=== PATIENT | female | born 1990 | race Caucasian/White ===

== ENCOUNTER 2020-02-23 17:25 | Emergency (ER) | payer OTHER, SELFPAY ==
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
[2020-02-23 17:31] VITALS: BP 109/84; PULSE 101; RESP 16; TEMP 37.7; O2SAT 97
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
== END 2020-02-23 18:16 | disposition short-term general hospital (02) ==
PROVIDERS: Emergency Provider Nurse Practitioner
DX: S61.250A Open bite of right index finger without damage to nail, initial encounter (principal); Y04.1XXA Assault by human bite, initial encounter
CPT/HCPCS: 73140; 99213; G0463

== ENCOUNTER 2021-06-10 19:42 | Emergency (ER) | payer OTHER, SELFPAY ==
--- NOTE | ~2021-06-10 | XR_ITS ---
EXAMINATION: XR foot RT min 3V DATE: 06/10/2021 20:10 INDICATION: Pain at the right metatarsophalangeal joints after kicking a door one week prior. TECHNIQUE: Dorsoplantar, two oblique and lateral views of the right foot were obtained. COMPARISON: None. FINDINGS: Bone alignment is normal. Antegrade intramedullary doug is seen extending caudally along the visualize d right tibia to the distal metaphysis. No fractures identified. Joint spaces are normal. Soft tissue s are unremarkable. No right ankle joint effusion. IMPRESSION: 1. Incompletely visualized internal fixation at the distal right tibia. No osseous abnormality in the right foot. Reviewed, dictated and finalized at location A. IMPRESSION: 1. Incompletely visualized internal fixation at the distal right tibia. No osse ous abnormality in the right foot.
[2021-06-10 19:52] VITALS: BP 125/69; PULSE 103; RESP 20; TEMP 36.9; O2SAT 100
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
== END 2021-06-10 20:30 | disposition home or self-care (01) ==
PROVIDERS: Emergency Provider Nurse Practitioner
DX: H66.001 Acute suppurative otitis media without spontaneous rupture of ear drum, right ear (principal); S90.31XA Contusion of right foot, initial encounter; W22.8XXA Striking against or struck by other objects, initial encounter; F17.210 Nicotine dependence, cigarettes, uncomplicated; G25.81 Restless legs syndrome
CPT/HCPCS: 73630; 99213; G0463

== ENCOUNTER 2021-08-27 13:08 | Emergency (ER) | payer OTHER, SELFPAY ==
--- NOTE | 2021-08-27 13:11 | ED.URI ---
HPI - URI/Sore Throat General Chief Complaint: Upper Respiratory Infection Stated Complaint: Congestion/Cough/Nausea Time Seen by Provider: 08/27/21 13:11 Source: patient and RN notes reviewed History of Present Illness HPI Narrative: Patient is a 30-year-old female who presents the urgent care with complaints of abdominal bloating, congestion, cough, nausea and fever that started yesterday. Although the fever to started yesterday she has been symptomatic for 4 days. Patient states that she took a test and it came up nothing . Patient states that she has had a uterine ablation and also does not have a uterus . Patient states that she should not be able to get . States that she started retaking medication [id number] for her symptoms yesterday. Denies of any vomiting or abdominal pain. No other acute complaints. No acute distress noted. Patient aware of the plan of care. Some parts of this dictation were generated by voice recognition software and may contain typographical and/or grammatical inaccuracies. Related Data Home Medications Medication Instructions Recorded Confirmed gabapentin 400 mg PO QID 08/27/21 08/27/21 Allergies Allergy/AdvReac Type Severity Reaction Status Date / Time ketorolac Allergy Intermediate RASH Verified 08/27/21 13:35 naproxen Allergy Intermediate RASH Verified 08/27/21 13:35 codeine Allergy Unknown itching Verified 08/27/21 13:35 Review of Systems Review of Systems: CONSTITUTIONAL: Reports a fever. EYES: Denies visual changes, redness, or discharge. ENT: Reports of head congestion as she CARDIOVASCULAR: Denies chest pain, palpitations, or edema. RESPIRATORY: Reports a mild cough GASTROINTESTINAL: Reports of abdominal distention with intermittent nausea without vomiting or diarrhea GENITOURINARY: Reports a possible SKIN: Denies rash or itching. MUSCULOSKELETAL: Denies back pain, joint pain, or myalgia. NEUROLOGIC: Reports of headache All other systems reviewed are negative, except as documented in HPI. [facility] Past Medical History Medical History (Updated 08/27/21 @ 13:51 by ERIN Gonzalez) Anxiety and depression Bipolar 1 disorder RLS (restless legs syndrome) Skull fracture Tibia/fibula fracture Urinary tract infection Social History Social History Smoking packs per day: 0.5 Smoking cigarettes per day: 10.0 Years smoked: 14 Smoking pack-years: 7.00 Smoking status: Current every day smoker Tobacco type: cigarettes Gender identity (if verbalized by the patient): Female Comments At the time of my signature, I reviewed and agree with the nursing past medical, surgical, social, and family history. There is no relevant family history pertinent to the patient complaint. Exam Narrative: GENERAL: This is a well-nourished, well-developed patient, in no apparent distress. HEAD: normocephalic, atraumatic. EYES: PERRL. Sclera clear/white. Vision is grossly intact. EARS: External ears normal, auditory canals clear and without drainage, TMs normal without perforation. Hearing grossly intact. NOSE: External nose normal with no obvious nasal discharge, nares without redness, clear rhinorrhea. THROAT: Mucous membranes moist, posterior pharynx clear. Moderate postnasal drainage NECK: Neck supple, CARDIOVASCULAR: Regular rate and rhythm without murmurs, gallops, or rubs. RESPIRATORY: Clear to auscultation. Breath sounds equal bilaterally. No wheezes, rales, or rhonchi. GASTROINTESTINAL: Abdomen soft, non-tender, mildly distended. Bowel sounds are active. SKIN: warm, intact with no suspicious lesions or rash, good texture and turgor. NEURO: awake, alert, and oriented to person, place and time. There were no obvious focal neurologic abnormalities. EXTREMITIES: No clubbing, cyanosis, or edema. BACK: No flank tenderness. Course Vital Signs Vital signs: Vital Signs Temperature 9
[2021-08-27 13:17] VITALS: BP 130/74; PULSE 120; RESP 18; TEMP 37.7; O2SAT 98
== END 2021-08-27 13:53 | disposition home or self-care (01) ==
PROVIDERS: Emergency Provider Nurse Practitioner Family
DX: U07.1 COVID-19 (principal); G25.81 Restless legs syndrome; F17.210 Nicotine dependence, cigarettes, uncomplicated
CPT/HCPCS: 81003; 81025; 87426; 99213; C9803; G0463

== ENCOUNTER 2021-11-05 09:27 | Emergency (ER) | payer OTHER, SELFPAY ==
--- NOTE | 2021-11-05 09:31 | ED.URI ---
HPI - URI/Sore Throat General Chief Complaint: Upper Respiratory Infection Stated Complaint: Ear Pain/Congestion/Headache Time Seen by Provider: 11/05/21 09:31 Source: patient and RN notes reviewed History of Present Illness HPI Narrative: Patient is a 30-year-old female who presents the urgent care with complaints of right ear pain, congestion, headache and loose stools. Patient had COVID a couple months ago and states that everyone in her home has been sick for the last week or so . Patient is not wanting a Covid test. States that she needs a release to go back to work. Denies of any recent fevers, nausea or vomiting. Currently denies of any abdominal pain. Patient states that her last loose stool was last night. States that she has been taking emergen C as well as Sudafed with little to no relief. No other acute complaints. No acute distress noted. Patient read the plan of care. Some parts of this dictation were generated by voice recognition software and may contain typographical and/or grammatical inaccuracies. Related Data Allergies Allergy/AdvReac Type Severity Reaction Status Date / Time ketorolac Allergy Intermediate RASH Verified 11/05/21 09:46 naproxen Allergy Intermediate RASH Verified 11/05/21 09:46 codeine Allergy Unknown itching Verified 11/05/21 09:46 Review of Systems Review of Systems: CONSTITUTIONAL: Denies fever, chills, or sweats. Reports of fatigue EYES: Denies visual changes, redness, or discharge. ENT: Reports of congestion, postnasal drainage and right otalgia CARDIOVASCULAR: Denies chest pain, palpitations, or edema. RESPIRATORY: Denies cough or dyspnea. GASTROINTESTINAL: Reports of loose stools and nausea GENITOURINARY: Denies dysuria or hematuria. SKIN: Denies rash or itching. MUSCULOSKELETAL: Denies back pain, joint pain, or myalgia. NEUROLOGIC: Denies headache, numbness, or weakness. All other systems reviewed are negative, except as documented in HPI. [facility] Past Medical History Medical History (Updated 11/05/21 @ 09:54 by ERIN Gonzalez) Anxiety and depression Bipolar 1 disorder RLS (restless legs syndrome) Skull fracture Tibia/fibula fracture Urinary tract infection Social History Social History Smoking packs per day: 0.5 Smoking cigarettes per day: 10.0 Years smoked: 14 Smoking pack-years: 7.00 Smoking status: Current every day smoker Tobacco type: cigarettes Gender identity (if verbalized by the patient): Female Comments At the time of my signature, I reviewed and agree with the nursing past medical, surgical, social, and family history. There is no relevant family history pertinent to the patient complaint. Exam Narrative: GENERAL: This is a well-nourished, well-developed patient, in no apparent distress. HEAD: normocephalic, atraumatic. EYES: PERRL. Sclera clear/white. Vision is grossly intact. EARS: External ears normal, auditory canals clear and without drainage, moderate erythema and mild injection with large effusion to the right TM. Left TM normal without perforation. Hearing grossly intact. NOSE: External nose normal with no obvious nasal discharge, nares without redness, no rhinorrhea. THROAT: Mucous membranes moist, posterior pharynx clear. Moderate postnasal drainage NECK: Neck supple, non-tender without lymphadenopathy CARDIOVASCULAR: Regular rate and rhythm without murmurs, gallops, or rubs. RESPIRATORY: Clear to auscultation. Breath sounds equal bilaterally. No wheezes, rales, or rhonchi. GASTROINTESTINAL: Abdomen soft, mild epigastric tenderness, nondistended. Bowel sounds are hyperactive. SKIN: warm, intact with no suspicious lesions or rash, good texture and turgor. NEURO: awake, alert, and oriented to person, place and time. There were no obvious focal neurologic abnormalities. EXTREMITIES: No clubbing, cyanosis, or edema. Course Course Level of Care: Express Care Visit Vital Si
[2021-11-05 09:33] VITALS: BP 109/68; PULSE 96; RESP 16; TEMP 37.9; O2SAT 99
== END 2021-11-05 09:57 | disposition home or self-care (01) ==
PROVIDERS: Emergency Provider Nurse Practitioner Family
DX: H66.91 Otitis media, unspecified, right ear (principal); Z86.16 Personal history of COVID-19; F17.210 Nicotine dependence, cigarettes, uncomplicated; G25.81 Restless legs syndrome
CPT/HCPCS: 99213; G0463

== ENCOUNTER 2022-01-30 11:19 | Emergency (ER) | payer OTHER, SELFPAY ==
[2022-01-30 11:23] VITALS: BP 154/100; PULSE 103; RESP 16; TEMP 37.2; O2SAT 99
--- NOTE | 2022-01-30 12:05 | ED.GENADULT ---
HPI - General Adult General Chief complaint: Upper Respiratory Infection Stated complaint: jay hamilton pain chest congestion Time Seen by Provider: 01/30/22 12:06 Source: patient, RN notes reviewed and old records reviewed Mode of arrival: ambulatory Limitations: no limitations History of Present Illness HPI narrative: 31 year old female who presents to [facility] care with complaints of abdominal pain, mid abdomen region with intermittent nausea, bloating and diarrhea for the past 6-7 months.She reports that her symptoms have increased in the past 1 1/2 weeks and she has been taking omeprazole She is also complaining of 4-5 day history of head and chest congestion with some yellow mucous production and cough, is taking Mucinex D for her symptoms. Patient reports that she has had not fevers, chills or sweats, shortness of breath or any noted wheezing.Patient reports that she uses tobacco daily. MD complaint: nausea abdominal bloating, cough and sinus congestion Onset (ago): day(s) (4-5 days of head and chest congestion) Related Data Allergies Allergy/AdvReac Type Severity Reaction Status Date / Time ketorolac Allergy Intermediate RASH Verified 01/30/22 11:43 naproxen Allergy Intermediate RASH Verified 01/30/22 11:43 codeine Allergy Unknown itching Verified 01/30/22 11:43 Review of Systems Review of Systems: CONSTITUTIONAL: Denies fever, chills, or sweats. EYES: Denies visual changes, redness, or discharge. ENT: Positive for rhinorrhea, congestion, no sore throat, or otalgia. CARDIOVASCULAR: Denies chest pain, palpitations, or edema. RESPIRATORY: Positive for cough no dyspnea. GASTROINTESTINAL: Middle region abdominal pain,some nausea, bloating and diarrhea. GENITOURINARY: Denies dysuria or hematuria. SKIN: Denies rash or itching. MUSCULOSKELETAL: Denies back pain, joint pain, or myalgia. NEUROLOGIC: Denies headache, numbness, or weakness. PSYCHIATRIC:Positive for history of anxiety or depression. All systems reviewed & are unremarkable except as noted in HPI and below PMFSH Past Medical History Medical History Anxiety and depression Bipolar 1 disorder COVID-19 09/09 RLS (restless legs syndrome) Skull fracture metal plate inserted Tibia/fibula fracture surgical repair of fracture Urinary tract infection Social History Social History (Updated 01/30/22 @ 12:20 by Michelle Neves NP) Smoking packs per day: 0.5 Smoking cigarettes per day: 10.0 Years smoked: 14 Smoking pack-years: 7.00 Smoking status: Current every day smoker Tobacco type: cigarettes Alcohol intake: current Alcohol use details: Rare Substance use: current Substance use type: marijuana Last use: Daily Gender identity (if verbalized by the patient): Female Comments At time of signature, agree with nursing past medical, surgical, social and family history. There is no relevant family history pertinent to the presenting complaint Exam Narrative: GENERAL: Well-appearing, well-nourished, and in no acute distress. HEAD: Normocephalic, atraumatic. EYES: PERRLA and EOMI. ENT: Nares with mild redness clear rhinorrhea no epistaxis. Mucous membranes moist.TM's normal with good light reflex, throat pink with no lesions or exudates, no tonsil enlargement. NECK: Supple.no lymphadenopathy CHEST: Clear to auscultation. No respiratory distress.cough and some hoarseness, SAO2 99% on room air HEART: Regular rate and rhythm. No murmur heard. Normal peripheral pulses. ABDOMEN: Soft, mildly tender mid abdominal region with no McBurney point tenderness, nondistended, normal active bowel sounds. EXTREMITIES: Normal range of motion. No edema. SKIN: Warm, dry, no rash. NEURO: No focal deficits. Alert and oriented x3. Course Course Level of Care: Express Care Visit Vital Signs Vital signs: Vital Signs Temperature 37.2 C 01/30/22 11:23 Pulse Rate 103 H 01/30/22 11:23 Respiratory Rate 1
== END 2022-01-30 12:30 | disposition home or self-care (01) ==
PROVIDERS: Emergency Provider Registered Nurse
DX: R11.2 Nausea with vomiting, unspecified (principal); R19.7 Diarrhea, unspecified; J06.9 Acute upper respiratory infection, unspecified; R10.33 Periumbilical pain; Z86.16 Personal history of COVID-19; F17.210 Nicotine dependence, cigarettes, uncomplicated; F12.90 Cannabis use, unspecified, uncomplicated
CPT/HCPCS: 99213; G0463

== ENCOUNTER 2022-05-26 12:30 | Emergency (ER) | payer OTHER, SELFPAY ==
[2022-05-26 12:34] VITALS: BP 112/65; PULSE 53; RESP 16; TEMP 37.2; O2SAT 100
--- NOTE | 2022-05-26 13:45 | ED.URI ---
HPI - URI/Sore Throat General Chief Complaint: Upper Respiratory Infection Stated Complaint: loss of voice, ear pain Time Seen by Provider: 05/26/22 12:55 Source: patient, RN notes reviewed and old records reviewed Mode of arrival: ambulatory Limitations: no limitations History of Present Illness HPI Narrative: 31-year-old female who presents to [facility] care with complaints of loss of voice,cough with some nasal congestion and bilateral ear pain for the past month of varying intensity. Patient reports that she lost her voice a few days ago and she has had some bloody drainage from her ears. Patient has been taking allergy medications at home with no improvement in her symptoms. Patient has long history of tobacco abuse. Patient also states for the past 2 days whe has some feelings of numbness in her right wrist, concerned of possible carpal tunnel. MD elicited complaint: cough, rhinorrhea, nasal congestion and other (ear pain) Pertinent past history: other (tobacco abuse) Pain scale (0-10): 6 Related Data Allergies Allergy/AdvReac Type Severity Reaction Status Date / Time ketorolac Allergy Intermediate RASH Verified 01/30/22 11:43 naproxen Allergy Intermediate RASH Verified 01/30/22 11:43 codeine Allergy Unknown itching Verified 01/30/22 11:43 Review of Systems Review of Systems: , fCONSTITUTIONAL: Denies any known fever, chills, or sweats. EYES: Denies visual changes, redness, or discharge. ENT: Positive for rhinorrhea, congestion,no sore throat, bilateral otalgia. CARDIOVASCULAR: Denies chest pain, palpitations, or edema. RESPIRATORY:positive dry cough denies dyspnea. GASTROINTESTINAL: Denies abdominal pain, nausea, vomiting, or diarrhea. GENITOURINARY: Denies dysuria or hematuria. SKIN: Denies rash or itching. MUSCULOSKELETAL: Denies back pain, joint pain, or myalgia.reports some numbness to right wrist NEUROLOGIC: Denies headache, numbness, or weakness. PSYCHIATRIC: Positive for anxiety or depression. All systems reviewed & are unremarkable except as noted in HPI and below PMFSH Past Medical History Medical History (Updated 05/29/22 @ 13:11 by Michelle Neves NP) Anxiety and depression Bipolar 1 disorder COVID-19 09/09 RLS (restless legs syndrome) Skull fracture metal plate inserted Tibia/fibula fracture surgical repair of fracture Urinary tract infection Surgical History Surgical History (Updated 05/29/22 @ 13:03 by Michelle Neves NP) History of partial hysterectomy Social History Social History (Updated 05/29/22 @ 13:01 by Michelle Neves NP) Smoking packs per day: 0.5 Smoking cigarettes per day: 10.0 Years smoked: 18 Smoking pack-years: 9.00 Smoking status: Current every day smoker Tobacco type: cigarettes Alcohol intake: current Alcohol use details: Rare Substance use: current Substance use type: marijuana Last use: Daily(prior history of drug abuse states clean except for use of marijuana) Gender identity (if verbalized by the patient): Female Comments At time of signature, agree with nursing past medical, surgical, social and family history. There is no relevant family history pertinent to the presenting complaint Exam Narrative: GENERAL: looks older than stated age, well-nourished, and in no acute distress. HEAD: Normocephalic, atraumatic. EYES: PERRLA and EOM ENT: Nares red with clear rhinorrhea no epistaxis. Mucous membranes moist.TM's bilateral red bulging no drainage noted. throat red with no lesions or exudates tonsils swollen, NECK: Supple.no lymphadenopathy CHEST: Clear to auscultation. No respiratory distress.SASO2 100% on room air dry cough noted with hoarseness HEART: Regular rate and rhythm. No murmur heard. Normal peripheral pulses. ABDOMEN: Soft, nontender, nondistended, normal active bowel sounds. EXTREMITIES: Normal range of motion. No edema.Voices numbness sensation intermittent to right wrist full mobility of wrist and fingers with strong pulses and
== END 2022-05-26 14:10 | disposition home or self-care (01) ==
PROVIDERS: Emergency Provider Registered Nurse
DX: J06.9 Acute upper respiratory infection, unspecified (principal); H66.93 Otitis media, unspecified, bilateral; F17.210 Nicotine dependence, cigarettes, uncomplicated; F12.90 Cannabis use, unspecified, uncomplicated; G25.81 Restless legs syndrome; Z90.711 Acquired absence of uterus with remaining cervical stump
CPT/HCPCS: 87081; 87880; 99213; G0463

== ENCOUNTER 2022-07-19 14:40 | Emergency (ER) | payer OTHER, SELFPAY ==
[2022-07-19 14:53] VITALS: BP 115/65; PULSE 81; RESP 16; TEMP 37.1; O2SAT 99
--- NOTE | 2022-07-19 15:55 | ED.GENADULT ---
HPI - General Adult General Chief complaint: Ear Stated complaint: Nausea/Vomiting Time Seen by Provider: 07/19/22 15:20 Source: patient, RN notes reviewed and old records reviewed Mode of arrival: ambulatory Limitations: no limitations History of Present Illness HPI narrative: 31 year old female who prsent to express care with complaints of 3 day history of ear pressure, headache, sinus congestion and drainages, facial pressure, nausea and vomiting with fever up to 02F yesterday. Patient reports that she has taken Mucinex,DayQuil for her symptoms with no resolution. Patient reports no acute cough, body aches, denies any shortness of breath or abdominal pain. MD complaint: ear pressure,sinus drainage, headache, nausea and vomiting,fever Onset (ago): day(s) (3) Severity scale (1-10): 6 Treatments prior to arrival: other (Mucinex, DayQuil) Related Data Allergies Allergy/AdvReac Type Severity Reaction Status Date / Time ketorolac Allergy Intermediate RASH Verified 07/19/22 15:08 naproxen Allergy Intermediate RASH Verified 07/19/22 15:08 codeine Allergy Unknown itching Verified 07/19/22 15:08 Review of Systems Review of Systems: CONSTITUTIONAL: Reports malaise, chills, sweats, or fever. EYES: Denies visual changes, redness, or discharge. ENT: Reports rhinorrhea, congestion, sinus pain, otalgia no sore throat. CARDIOVASCULAR: Denies chest pain, palpitations, or edema. RESPIRATORY: no cough.? Denies dyspnea. GASTROINTESTINAL: Denies abdominal pain,positive for nausea, vomiting, denies diarrhea SKIN: Denies rash or itching. MUSCULOSKELETAL: Denies myalgia. NEUROLOGIC: reports headache. All systems reviewed & are unremarkable except as noted in HPI and below PMFSH Past Medical History Medical History Anxiety and depression Bipolar 1 disorder COVID-19 09/09 RLS (restless legs syndrome) Skull fracture metal plate inserted Tibia/fibula fracture surgical repair of fracture Urinary tract infection Surgical History Surgical History History of partial hysterectomy Social History Social History Smoking packs per day: 0.5 Smoking cigarettes per day: 10.0 Years smoked: 18 Smoking pack-years: 9.00 Smoking status: Current every day smoker Tobacco type: cigarettes Alcohol intake: current Alcohol use details: Rare Substance use: current Substance use type: marijuana Last use: Daily(prior history of drug abuse states clean except for use of marijuana) Gender identity (if verbalized by the patient): Female Comments At time of signature, agree with nursing past medical, surgical, social and family history. There is no relevant family history pertinent to the presenting complaint Exam Narrative: GENERAL: Well-appearing, well-nourished, and in no acute distress. HEAD: Normocephalic EYES: PERRLA, conjunctivae clear ENT: Nares clear, turbinates edematous and erythematous, clear discharge,facial and ear pressure. Mucous membranes moist. TM pearly alarcon with dull light reflex bilaterally; no tragal tenderness. Oropharynx erythematous without lesions. Tonsils not enlarged and without exudate, no drooling, no hoarseness, no trismus, uvula midline.post nasal drainage NECK: Supple. No lymphadenopathy CHEST: Clear to auscultation, breath sounds equal. No wheezing, rhonchi, rales, or stridor. No respiratory distress, speaks in full sentences.no cough noted SAO2 99% on room air HEART: Regular rate and rhythm. No murmur heard. SKIN: Warm, dry, no rash. NEURO: Alert and oriented x3. PSYCH: Normal mood and affect Course Course Emergency Course: Patient is aware of diagnosis, understands and agrees to treatment plan.? Anticipatory guidance given.? Patient agrees to follow-up as directed and is aware of reasons to seek care at the e
== END 2022-07-19 16:10 | disposition home or self-care (01) ==
PROVIDERS: Emergency Provider Registered Nurse
DX: J32.9 Chronic sinusitis, unspecified (principal); R11.2 Nausea with vomiting, unspecified; F17.210 Nicotine dependence, cigarettes, uncomplicated; G25.81 Restless legs syndrome; Z86.16 Personal history of COVID-19
CPT/HCPCS: 99213; G0463

== ENCOUNTER 2022-08-15 10:37 | Emergency (ER) | payer OTHER, SELFPAY ==
--- NOTE | ~2022-08-15 | XR_ITS ---
XR knee RT min 4V DATE: 08/15/2022 12:10 INDICATION: Struck in middle pole. Anterolateral pain. TECHNIQUE: 6 views including crosstable lateral COMPARISON: November 10, 2017 right knee FINDINGS: No fracture or dislocation or joint effusion of the right knee. No periosteal reaction or b one destruction. Joint spaces are well preserved. No radiopaque intra-articular loose body or chondro calcinosis. Old proximal fibular shaft healed fracture deformity Intramedullary doug of the tibia. IMPRESSION: No fracture or dislocation or joint effusion of right knee Intramedullary doug of tibia; interlocking proximal screw has been removed since 11/10/2017 Old healed fracture of proximal fibular shaft Reviewed, dictated and finalized at location A. [employer]
[2022-08-15 10:46] VITALS: BP 122/71; PULSE 92; RESP 16; TEMP 37.4; O2SAT 100
--- NOTE | 2022-08-15 12:55 | ED.LOWEXIN ---
HPI - Extremity Injury (Lower) General Chief Complaint: Extremity Injury, Lower Stated Complaint: right knee cap injury Time Seen by Provider: 08/15/22 12:55 Source: patient, RN notes reviewed and old records reviewed Mode of arrival: ambulatory Limitations: no limitations History of Present Illness HPI Narrative: 31 year ol female who presents to express care with complaints of right knee pain and swelling since she was playing at park with kids and swinging on bar and fell hitting her right knee on a metal bar yesterday.Patient reports pain to the anterolateral aspect of her right knee with abrasion swelling and mild ecchymosis. Patient is concerned since she has metal doug in tibia/fibula area of right leg. Patient has used ice to her right knee and taken Ibuprofen. MD complaint: knee injury Onset (ago): day(s) (1) Type of Injury: blunt Severity scale (1-10): 5 Treatments prior to arrival: cold therapy and other (ibuprofen) Related Data Home Medications Medication Instructions Recorded Confirmed No Home Medications 08/15/22 08/15/22 Allergies Allergy/AdvReac Type Severity Reaction Status Date / Time ketorolac Allergy Intermediate RASH Verified 08/15/22 11:56 naproxen Allergy Intermediate RASH Verified 08/15/22 11:56 codeine Allergy Unknown itching Verified 08/15/22 11:56 Review of Systems Review of Systems: CONSTITUTIONAL: Denies fever, chills, or sweats. CARDIOVASCULAR: Denies chest pain, palpitations, or edema. RESPIRATORY: Denies cough or dyspnea. SKIN: Denies rash or itching. Denies laceration or abrasions MUSCULOSKELETAL: Reports pain and swelling to right knee with abrasion noted and ecchymosis NEUROLOGIC: Denies numbness, or weakness. All systems reviewed & are unremarkable except as noted in HPI and below PMFSH Past Medical History Medical History (Updated 08/20/22 @ 11:46 by Michelle Neves NP) Anxiety and depression Bipolar 1 disorder COVID-19 09/09 RLS (restless legs syndrome) Skull fracture metal plate inserted Tibia/fibula fracture doug Urinary tract infection Surgical History Surgical History History of partial hysterectomy Social History Social History Smoking packs per day: 0.5 Smoking cigarettes per day: 10.0 Years smoked: 18 Smoking pack-years: 9.00 Smoking status: Current every day smoker Tobacco type: cigarettes Alcohol intake: current Alcohol use details: Rare Substance use: current Substance use type: marijuana Last use: Daily(prior history of drug abuse states clean except for use of marijuana) Gender identity (if verbalized by the patient): Female Comments At time of signature, agree with nursing past medical, surgical, social and family history. There is no relevant family history pertinent to the presenting complaint Exam Narrative: GENERAL: Well-appearing, well-nourished, and in no acute distress. HEAD: Normocephalic, atraumatic. EYES: PERRLA and EOMI. ENT: Nares clear, no rhinorrhea or epistaxis. Mucous membranes moist. NECK: Supple.no lymphadenopathy CHEST: Clear to auscultation. No respiratory distress. HEART: Regular rate and rhythm. No murmur heard. Normal peripheral pulses. ABDOMEN: Soft, nontender, nondistended, normal active bowel sounds. EXTREMITIES: Normal range of motion. mild edema to anterior lateral right knee with some ecchymosis noted . Patient has full ROM of her right knee. SKIN: Warm, dry, no rash.small abrasion right knee NEURO: No focal deficits. Alert and oriented x3. Course Course Emergency Course: Patient is aware of diagnosis, understands and agrees to treatment plan. Anticipatory guidance given. Patient agrees to follow-up as directed and is aware of reasons to seek care at the emergency department. Portions of this record may have been created with voice recognition software Level of Care: Expre
== END 2022-08-15 13:10 | disposition home or self-care (01) ==
PROVIDERS: Emergency Provider Registered Nurse
DX: S80.01XA Contusion of right knee, initial encounter (principal); W22.8XXA Striking against or struck by other objects, initial encounter; G25.81 Restless legs syndrome; Z90.711 Acquired absence of uterus with remaining cervical stump
CPT/HCPCS: 73564; 99213; G0463

== ENCOUNTER 2022-11-09 12:47 | Emergency (ER) | payer OTHER, SELFPAY ==
--- NOTE | ~2022-11-09 | XR_ITS ---
Clinical Indication: Pneumonia PA and lateral views of the chest: Comparison: 12/16/2015 Findings: The lungs are clear, without evidence of focal consolidation or pleural effusion. Cardiome diastinal silhouette is within normal limits. Bones and soft tissues are unremarkable. Impression: Normal chest. Reviewed, dictated and finalized at [facility]. [employer] Impression: Normal chest.
[2022-11-09 13:00] VITALS: BP 119/82; PULSE 101; RESP 16; TEMP 37.7; O2SAT 99
--- NOTE | 2022-11-09 13:34 | ED.URI ---
HPI - URI/Sore Throat General Chief Complaint: Upper Respiratory Infection Stated Complaint: Cough/Diarrhea Source: patient and RN notes reviewed History of Present Illness HPI Narrative: 31-year-old female presents urgent care with multiple medical complaints. Patient reports having a cough, pain in her right anterior rib with coughing and deep inhalation, congestion, shortness of breath and lethargy for the last week. Patient reports vomiting and diarrhea as well. Patient reports subjective fevers and chills. Patient is taking uolo-cug-eiftued cold medication without relief. Some parts of this dictation were generated by voice recognition software and may contain typographical and/or grammatical inaccuracies. Related Data Allergies Allergy/AdvReac Type Severity Reaction Status Date / Time ketorolac Allergy Intermediate RASH Verified 08/15/22 11:56 naproxen Allergy Intermediate RASH Verified 08/15/22 11:56 codeine Allergy Unknown itching Verified 08/15/22 11:56 Review of Systems Review of Systems: CONSTITUTIONAL: Reports fever, chills, sweats. EYES: Denies visual changes, redness, or discharge. ENT: Reports congestion CARDIOVASCULAR: Denies chest pain, palpitations, or edema. RESPIRATORY: Reports cough and dyspnea. GASTROINTESTINAL: Reports nausea, vomiting, and diarrhea. GENITOURINARY: Denies dysuria or hematuria. SKIN: Denies rash or itching. MUSCULOSKELETAL: Rib pain NEUROLOGIC: Denies headache, numbness, or weakness. [facility] Past Medical History Medical History (Updated 11/09/22 @ 13:55 by Erica Pearson, CAROLYN) Anxiety and depression Bipolar 1 disorder COVID-19 09/09 RLS (restless legs syndrome) Skull fracture metal plate inserted Tibia/fibula fracture doug Urinary tract infection Surgical History Surgical History History of partial hysterectomy Social History Social History Smoking packs per day: 0.5 Smoking cigarettes per day: 10.0 Years smoked: 18 Smoking pack-years: 9.00 Smoking status: Current every day smoker Tobacco type: cigarettes Alcohol intake: current Alcohol use details: Rare Substance use: current Substance use type: marijuana Last use: Daily(prior history of drug abuse states clean except for use of marijuana) Living arrangements: with family Gender identity (if verbalized by the patient): Female Comments At the time of my signature, I reviewed and agree with the nursing past medical, surgical, social, and family history. There is no relevant family history pertinent to the patient complaint. Exam Narrative: GENERAL: This is a well-nourished, well-developed patient, in no apparent distress. HEAD: normocephalic, atraumatic. EYES: PERRL. Sclera clear/white. Vision is grossly intact. EARS: External ears normal, auditory canals clear and without drainage, TMs normal without perforation. Hearing grossly intact. NOSE: External nose normal with no obvious nasal discharge, nares without redness, no rhinorrhea. THROAT: Mucous membranes moist, posterior pharynx clear. NECK: Neck supple, non-tender without lymphadenopathy, masses or thyromegaly. CARDIOVASCULAR: Regular rate and rhythm without murmurs, gallops, or rubs. RESPIRATORY: Clear to auscultation. Breath sounds equal bilaterally. No wheezes, rales, or rhonchi. GASTROINTESTINAL: Abdomen soft, non-tender, nondistended. Bowel sounds are active. No hepato-splenomegaly, or palpable masses. No guarding. SKIN: warm, intact with no suspicious lesions or rash, good texture and turgor. NEURO: awake, alert, and oriented to person, place and time. There were no obvious focal neurologic abnormalities. Course Course Level of Care: Express Care Visit Vital Signs Vital signs: Vital Signs Temperature 99.9 F H 11/09/22 13:00 Pulse Rate 101 H 11/09/22 13:00 Respiratory Rate 16 11/09/22 13:00 Bloo
== END 2022-11-09 14:02 | disposition home or self-care (01) ==
PROVIDERS: Emergency Provider Nurse Practitioner Family; PCP Emergency Medicine
DX: B34.9 Viral infection, unspecified (principal); K52.9 Noninfective gastroenteritis and colitis, unspecified; F17.210 Nicotine dependence, cigarettes, uncomplicated; F12.90 Cannabis use, unspecified, uncomplicated; G25.81 Restless legs syndrome; Z86.16 Personal history of COVID-19
CPT/HCPCS: 71046; 99213; G0463

== ENCOUNTER 2022-12-09 14:55 | Emergency (ER) | payer OTHER, SELFPAY ==
--- NOTE | ~2022-12-09 | XR_ITS ---
EXAMINATION: XR ribs RT 2V Exam Date/Time: 12/09/2022 15:30 CDT HISTORY: ANT PAIN AFTER COUGHING, FELT POSTERIOR POP Comparison: X-ray chest 11/09/2022. RESULT: Lines, tubes, and devices: None. Lungs and pleura: Clear. Cardiothymic silhouette: Stable. Other: No acute osseous or upper abdominal finding. IMPRESSION: No acute cardiopulmonary process. No acute osseous finding in the right ribs. Reviewed, dictated and finalized at location K.
[2022-12-09 15:03] VITALS: BP 112/67; PULSE 80; RESP 18; TEMP 37.7; O2SAT 98
--- NOTE | 2022-12-09 15:24 | ED.GENADULT ---
HPI - General Adult General Chief complaint: Chest Pain Stated complaint: right side rib pain from cough Time Seen by Provider: 12/09/22 15:00 Source: patient and RN notes reviewed History of Present Illness HPI narrative: Patient is a 32-year-old female who presents to urgent care with complaints of right rib pain. Patient states that she believes it was from a cough yesterday and today it has gotten exceptionally worse in the upper back. Patient states his exacerbated with movement and deep breathing. Patient states that she has had a fractured rib in the past and feels very similar. Denies any recent injury to cause fracture. States she has been taking ibuprofen with minimal pain relief. No other acute complaints. No acute distress noted. Patient aware of the plan of care. Some parts of this dictation were generated by voice recognition software and may contain typographical and/or grammatical inaccuracies. Related Data Home Medications Medication Instructions Recorded Confirmed No Home Medications 12/09/22 12/09/22 Allergies Allergy/AdvReac Type Severity Reaction Status Date / Time ketorolac Allergy Intermediate RASH Verified 12/09/22 15:16 naproxen Allergy Intermediate RASH Verified 12/09/22 15:16 codeine Allergy Unknown itching Verified 12/09/22 15:16 Review of Systems Review of Systems: CONSTITUTIONAL: Denies fever, chills, or sweats. EYES: Denies visual changes, redness, or discharge. ENT: Denies rhinorrhea, congestion, sore throat, or otalgia. CARDIOVASCULAR: Denies chest pain, palpitations, or edema. RESPIRATORY: Reports of right rib pain exacerbated with cough GASTROINTESTINAL: Denies abdominal pain, nausea, vomiting, or diarrhea. GENITOURINARY: Denies dysuria or hematuria. SKIN: Denies rash or itching. MUSCULOSKELETAL: Denies back pain, joint pain, or myalgia. NEUROLOGIC: Denies headache, numbness, or weakness. All other systems reviewed are negative, except as documented in HPI. [facility] Past Medical History Medical History (Updated 12/09/22 @ 15:48 by ERIN Gonzalez) Anxiety and depression Bipolar 1 disorder COVID-19 09/09 RLS (restless legs syndrome) Skull fracture metal plate inserted Tibia/fibula fracture doug Urinary tract infection Surgical History Surgical History History of partial hysterectomy Social History Social History Smoking packs per day: 0.5 Smoking cigarettes per day: 10.0 Years smoked: 18 Smoking pack-years: 9.00 Smoking status: Current every day smoker Tobacco type: cigarettes Alcohol intake: current Alcohol use details: Rare Substance use: current Substance use type: marijuana Last use: Daily(prior history of drug abuse states clean except for use of marijuana) Living arrangements: with family Gender identity (if verbalized by the patient): Female Comments At the time of my signature, I reviewed and agree with the nursing past medical, surgical, social, and family history. There is no relevant family history pertinent to the patient complaint. Exam Narrative: GENERAL: This is a well-nourished, well-developed patient, in no apparent distress. HEAD: normocephalic, atraumatic. EYES: PERRL. Sclera clear/white. Vision is grossly intact. EARS: External ears normal NOSE: External nose normal with no obvious nasal discharge, nares without redness, no rhinorrhea. THROAT: Mucous membranes moist NECK: Neck supple, non-tender without lymphadenopathy CARDIOVASCULAR: Regular rate and rhythm RESPIRATORY: Clear to auscultation. Breath sounds equal bilaterally. No wheezes, rales, or rhonchi. Moderate anterior right rib discomfort on palpation without ecchymosis SKIN: warm, intact with no suspicious lesions or rash, good texture and turgor. NEURO: awake, alert, and oriented to person, place and time. There were no obvious focal heri
== END 2022-12-09 15:59 | disposition home or self-care (01) ==
PROVIDERS: Emergency Provider Nurse Practitioner Family; PCP Family Medicine
DX: R07.81 Pleurodynia (principal); F17.210 Nicotine dependence, cigarettes, uncomplicated
CPT/HCPCS: 71100; 99213; G0463

== ENCOUNTER 2024-05-04 14:05 | Emergency (ER) | payer SELFPAY ==
[2024-05-04 14:15] VITALS: BP 117/82; PULSE 83; RESP 15; TEMP 36.8; O2SAT 100
--- NOTE | 2024-05-04 14:46 | ED.NAVMDI ---
HPI - Nausea/Vomiting/Diarrhea General Chief complaint: Nausea/Vomiting/Diarrhea Stated complaint: nausea/diarrhea/chills Time Seen by Provider: 05/04/24 14:46 Source: patient, RN notes reviewed and old records reviewed Mode of arrival: ambulatory Limitations: no limitations History of Present Illness HPI Narrative: 33-year-old female to Express Care for complaint of sneezing, bilateral ear discomfort, nausea, diarrhea since last night. Patient denies vomiting, abdominal pain, shortness of breath, chest pain, sore throat, headache, pertinent medical history. Patient does not endorse attempting to treat at home. Patient able to tolerate fluids by mouth. Respirations even and nonlabored. Patient in no acute distress. Related Data Home Medications Medication Instructions Recorded Confirmed No Home Medications 12/09/22 12/09/22 Allergies Allergy/AdvReac Type Severity Reaction Status Date / Time ketorolac Allergy Intermediate RASH Verified 12/09/22 15:16 naproxen Allergy Intermediate RASH Verified 12/09/22 15:16 codeine Allergy Unknown itching Verified 12/09/22 15:16 Review of Systems Review of Systems: All systems reviewed & are unremarkable except as noted in HPI and below Constitutional: Constitutional: Reports no additional constitutional complaints Eyes: Eyes: Reports no additional eye complaints ENT: Reports as per HPI, Reports otalgia and Reports other ( Sneezing) Cardiovascular: Cardiovascular: Reports no additional cardiovascular complaints, Denies chest pain and Denies dyspnea Respiratory: Respiratory: Reports no additional respiratory complaints, Denies cough and Denies dyspnea Gastrointestinal: Gastrointestinal: Reports diarrhea and Reports nausea Musculoskeletal: Musculoskeletal: Reports no additional musculoskeletal complaints Neurologic: Reports system reviewed and no additional complaints, except as documented Psychiatric: Psychiatric: Reports no additional psychiatric complaints PMFSH Past Medical History Medical History Anxiety and depression Bipolar 1 disorder COVID-19 09/09 RLS (restless legs syndrome) Skull fracture metal plate inserted Tibia/fibula fracture doug Urinary tract infection Surgical History Surgical History History of partial hysterectomy Social History Social History Smoking packs per day: 0.5 Smoking cigarettes per day: 10.0 Years smoked: 18 Smoking pack-years: 9.00 Smoking status: Current every day smoker Tobacco type: cigarettes Alcohol intake: current Alcohol use details: Rare Substance use: current Substance use type: marijuana Last use: Daily(prior history of drug abuse states clean except for use of marijuana) Living arrangements: with family Gender identity (if verbalized by the patient): Female Comments At the time of my signature, I reviewed and agree with the nursing past medical, surgical, social, and family history. There is no relevant family history pertinent to the patient complaint. Exam Const: General: cooperative, no acute distress, alert, tired appearing and well nourished Nutritional Appearance: well nourished Orientation/consciousness: patient oriented x3 Limitations: no limitations HENMT: Head: normal to inspection Ears: external ears normal Face/Nose/Sinus: Normal external nose present, Normal nares present, normal facial exam, No erythema and No edema Face and sinus: normal facial exam, no erythema and no edema Mouth: Yes Normal oral and palatal mucosa present Eyes: General: appearance normal, both eyes and all related structures Neck: Neck: normal visual inspection, full ROM and no meningeal signs Lymphatic: no lymphadenopathy noted and no lymphedema noted Chest: Chest palpation & inspection: normal inspection of t
== END 2024-05-04 15:00 | disposition home or self-care (01) ==
PROVIDERS: Emergency Provider Nurse Practitioner Family
DX: B34.9 Viral infection, unspecified (principal); Z20.822 Contact with and (suspected) exposure to COVID-19; F17.210 Nicotine dependence, cigarettes, uncomplicated; G25.81 Restless legs syndrome; Z86.16 Personal history of COVID-19
CPT/HCPCS: 87426; 99212; G0463

== ENCOUNTER 2024-05-09 13:19 | Emergency (ER) | payer SELFPAY ==
[2024-05-09 13:28] VITALS: BP 136/86; PULSE 96; RESP 20; TEMP 36.9; O2SAT 99
--- NOTE | 2024-05-09 13:45 | ED.NAVMDI ---
HPI - Nausea/Vomiting/Diarrhea General Chief complaint: Nausea/Vomiting/Diarrhea Stated complaint: fever/nausea History of Present Illness HPI Narrative: Patient here requesting a work note. Patient states she felt bad last week thought she felt better went to work and had a little bit in nausea and diarrhea. Patient states she needs a note because she left work. Patient states she is tolerating liquids well diarrhea has resolved. No abdominal pain no fever no body aches. Patient just states she needs a note to return to work. Related Data Home Medications Medication Instructions Recorded Confirmed No Home Medications 12/09/22 05/09/24 Allergies Allergy/AdvReac Type Severity Reaction Status Date / Time ketorolac Allergy Intermediate RASH Verified 05/09/24 13:43 naproxen Allergy Intermediate RASH Verified 05/09/24 13:43 codeine Allergy Unknown itching Verified 05/09/24 13:43 Review of Systems Review of Systems: CONSTITUTIONAL: Denies chills, or sweats. Reports fever and generalized body aches EYES: Denies visual changes, redness, or discharge. ENT: Denies otalgia. Reports nasal congestion runny nose and sore throat CARDIOVASCULAR: Denies chest pain, palpitations, or edema. RESPIRATORY: Denies dyspnea. Reports occasional cough GASTROINTESTINAL: Denies abdominal pain, nausea, vomiting, or diarrhea. GENITOURINARY: Denies dysuria or hematuria. SKIN: Denies rash or itching. MUSCULOSKELETAL: Denies back pain, joint pain, or myalgia. Reports generalized body aches NEUROLOGIC: Denies headache, numbness, or weakness. PSYCHIATRIC: Denies anxiety or depression. [facility] Past Medical History Medical History Anxiety and depression Bipolar 1 disorder COVID-19 09/09 RLS (restless legs syndrome) Skull fracture metal plate inserted Tibia/fibula fracture doug Urinary tract infection Surgical History Surgical History History of partial hysterectomy Social History Social History Smoking packs per day: 0.5 Smoking cigarettes per day: 10.0 Years smoked: 18 Smoking pack-years: 9.00 Smoking status: Current every day smoker Tobacco type: cigarettes Alcohol intake: current Alcohol use details: Rare Substance use: current Substance use type: marijuana Last use: Daily(prior history of drug abuse states clean except for use of marijuana) Living arrangements: with family Gender identity (if verbalized by the patient): Female Comments At time of signature, agree with nursing past medical, surgical, social and family history. There is no relevant family history pertinent to the presenting complaint Exam Narrative: The patient is a well-developed, well-nourished in no acute distress. SKIN: Skin is warm and dry without erythema, swelling or exudate. There is good turgor. No tenting. HEAD: Atraumatic. Normocephalic. No temporal or scalp tenderness. EYES: Moist and bright. Sclera and conjunctivae normal. No discharge. PERRLA. Extraocular motions intact. Gross visual acuity intact. EARS: Pinna is normal shape and contour. Clear external auditory canals. TM pearly cummins with good cone of light, no erythema or suppuration. Bilateral cerumen noted no gross hearing deficit. NOSE: pink, moist mucosa with good air movement. Clear rhinorrhea without nasal flaring. Septum midline. Mouth: moist mucous membranes. THROAT; mild erythema noted to posterior oropharynx with moderate postnasal drainage. Without exudate or ulceration.. Uvula midline. Normal movement of soft palate. NECK: Supple and nontender with full range of motion without discomfort. No meningeal signs. LUNGS: Equal and bilateral breath sounds without wheezes, rales or rhonchi. CHEST: The chest wall is without retractions or use of accessory muscles. HEART: Has a regul
== END 2024-05-09 13:53 | disposition home or self-care (01) ==
PROVIDERS: Emergency Provider Nurse Practitioner Family
DX: K52.9 Noninfective gastroenteritis and colitis, unspecified (principal); F17.210 Nicotine dependence, cigarettes, uncomplicated; F12.90 Cannabis use, unspecified, uncomplicated; G25.81 Restless legs syndrome; Z90.711 Acquired absence of uterus with remaining cervical stump; Z86.16 Personal history of COVID-19
CPT/HCPCS: 99211; G0463

== ENCOUNTER 2025-07-17 15:55 | Emergency (ER) | payer SELFPAY ==
[2025-07-17 16:00] VITALS: BP 124/65; PULSE 98; RESP 20; TEMP 36.6; O2SAT 100
[2025-07-17 16:47] LABS: EDCOVIDSCREEN Negative (Negative); EDINFLUASCREEN Negative (Negative); EDINFLUBSCREEN Negative (Negative)
--- NOTE | 2025-07-17 16:54 | ED.EAR ---
HPI - Ear Problem General Chief complaint: Ear Stated complaint: Fever/Ear Problem Time Seen by Provider: 07/17/25 16:45 Source: patient and RN notes reviewed Mode of arrival: ambulatory Limitations: no limitations History of Present Illness HPI Narrative: 34-year-old female presents to the [facility] complaining upper respiratory symptoms for approximately a week. She reports congestion, fevers, nasal drainage, otalgia, nausea, cough, body aches, and sinus pressure. Patient says she feels like symptoms are getting worse. Patient denies any breathing problems, chest pain, shortness of breath, vomiting, abdominal pain, diarrhea, or any other symptoms. Patient taking [id number] cold/flu medication without relief. Related Data Allergies Allergy/AdvReac Type Severity Reaction Status Date / Time ketorolac Allergy Intermediate RASH Verified 07/17/25 16:06 naproxen Allergy Intermediate RASH Verified 07/17/25 16:06 codeine Allergy Unknown itching Verified 07/17/25 16:06 Review of Systems Review of Systems: CONSTITUTIONAL: Denies fever, chills, or sweats. EYES: Denies visual changes, redness, or discharge. ENT: Denies rhinorrhea, sore throat. Positive for otalgia, congestion, sinus pressure CARDIOVASCULAR: Denies chest pain, palpitations, or edema. RESPIRATORY: Positive cough. Negative for wheezing or Dyspnea. GASTROINTESTINAL: Denies abdominal pain,, vomiting, or diarrhea. Positive for nausea. GENITOURINARY: Denies dysuria or hematuria. SKIN: Denies rash or itching. MUSCULOSKELETAL: Denies back pain, joint pain, or myalgia. NEUROLOGIC: Denies headache, numbness, or weakness. PSYCHIATRIC: Denies anxiety or depression. All other systems reviewed are negative, except as documented in HPI. [facility] Past Medical History Medical History Tibia/fibula fracture doug COVID-19 09/09 Urinary tract infection Bipolar 1 disorder Anxiety and depression RLS (restless legs syndrome) Skull fracture metal plate inserted Surgical History Surgical History History of partial hysterectomy Social History Social History Smoking packs per day: 0.5 Smoking cigarettes per day: 10.0 Years smoked: 18 Smoking pack-years: 9.00 Smoking status: Current every day smoker Tobacco type: cigarettes Alcohol intake: current Alcohol use details: Rare Substance use: current Substance use type: marijuana Last use: Daily(prior history of drug abuse states clean except for use of marijuana) Living arrangements: with family Gender identity (if verbalized by the patient): Female Comments At the time of my signature, I reviewed and agree with the nursing past medical, surgical, social, and family history. There is no relevant family history pertinent to the patient complaint. Exam Narrative: GENERAL: This is a well-nourished, well-developed adult, in no apparent distress. They are non ill-appearing, nontoxic appearing. HEAD: normocephalic, atraumatic. EYES: Sclera clear/white. Conjunctiva normal. Vision is grossly intact. Extraocular movements intact EARS: External ears normal, auditory canals clear and without drainage, TMs normal without perforation. Hearing grossly intact. NOSE: External nose normal with no obvious nasal discharge, nasal turbinates erythematous, no rhinorrhea. Maxillary sinus tenderness to palpation. THROAT: Mucous membranes moist, posterior pharynx erythematous. No exudate Uvula midline. Postnasal drip present. NECK: Neck supple, non-tender without lymphadenopathy, masses or thyromegaly. CARDIOVASCULAR: Regular rate and rhythm without murmurs, gallops, or rubs. RESPIRATORY: Clear to auscultation. Breath sounds equal bilaterally. No wheezes, rales, or rhonchi. SKIN: warm, Dry, intact with no suspicious lesions or rash, good texture and turgor. NEURO: awake, alert, and oriented to person, place and time. There were no obvious focal neurologic abnormalities. EXTREMITIES: No joint tenderness, effusion, or edema noted. BACK: Nontender without deformity. No CVA tenderness. Course Course Emergency Course: Portions of this record may have been created with voice recognition software Level of Care: Express Care Visit Vital Signs Vital signs: Vital Signs Temperature 97.8 F 07/17/25 16:00 Pulse Rate 98 07/17/25 16:00 Respiratory Rate 20 07/17/25 16:00 Blood Pressure 124/65 07/17/25 16:00 Pulse Oximetry 100 07/17/25 16:00 Oxygen Delivery Room Air 07/17/25 16:00 Temperature 97.8 F 07/17/25 16:00 Pulse Rate 98 07/17/25 16:00 Respiratory Rate 20 07/17/25 16:00 Blood Pressure 124/65 07/17/25 16:00 Pulse Oximetry 100 07/17/25 16:00 Oxygen Delivery Room Air 07/17/25 16:00 Reviewed Medical Decision Making MDM Narrative Medical decision making narrative: Rapid COVID and flu were negative. Given patient's length of symptoms and worsening symptoms, it is likely she has bacterial sinusitis will treat her with Augmentin. Discussed physical exam findings. Advised supportive measures and signs/symptoms to go to the ER. Pt is appropriate for outpt treatment and f/u. Differential Diagnosis Differential Diagnosis: Upper respiratory infection, sinusitis, otitis media, pharyngitis, Vital Signs Vital Signs: Vital Signs Temperature 97.8 F 07/17/25 16:00 Pulse Rate 98 07/17/25 16:00 Respiratory Rate 20 07/17/25 16:00 Blood Pressure 124/65 07/17/25 16:00 Pulse Oximetry 100 07/17/25 16:00 Oxygen Delivery Room Air 07/17/25 16:00 Temperature 97.8 F 07/17/25 16:00 Pulse Rate 98 07/17/25 16:00 Respiratory Rate 20 07/17/25 16:00 Blood Pressure 124/65 07/17/25 16:00 Pulse Oximetry 100 07/17/25 16:00 Oxygen Delivery Room Air 07/17/25 16:00 Lab Data Labs: Lab Results 07/17/25 Range/Units 16:46 POC Influenza A Ag Negative (Negative) POC Influenza B Ag Negative (Negative) POC SARS CoV-2 Ag Negative (Negative) Critical Care Time Critical Care Time Critical Care Time: No Discharge Plan Discharge Clinical Impression: Sinusitis Patient Disposition: Home Condition: Stable Instructions: Antibiotic Form, Sinusitis (ED) Additional Instructions: Your rapid COVID and flu were negative. Take the antibiotics as directed and complete the course even if you start to feel better. You may use a Neti pot saline rinse 3 times a day with lukewarm distilled water Continue to take Tylenol as needed for pain or fevers. Follow instructions on the bottle. Use a humidifier or vaporizer at night. Drink plenty of water. 8-10 glasses per day. Use flonase 2 times per day for 5 days then as needed Take mucinex 2 times per day and be sure to take with 8oz of water. Follow up with Primary provider in 3-5 days Please go to the ER if he develops any difficulty breathing, worsening symptoms, chest pain, vomiting, or any other concerns Patient Language: Hungarian Prescriptions: New amoxicillin-pot clavulanate 875-125 mg tablet 1 tablet PO Q12H 7 Days Qty: 14 0RF Follow-up/Referrals: PHYSICIAN,[facility] [employer] [Primary Care Provider, Internal Medicine] Stand Alone Forms: Work/School Release IP Time of Disposition: 16:51
--- OUTSIDE RECORDS SUMMARY | 2025-07-17 17:47 | XMS_ITS | Clinical Summary ---
Author Organization [facility] Address [address] [place] [address] Care Team Providers Care Manager Of Regulatory Affairs Name Role Phone No, Physician Primary Care Provider [phone] Allergies Active Allergy Reactions Criticality Noted Date Comments Ketorolac Nausea & Vomiting Low 07/04/2018 Naproxen Vomiting,Nausea And Vomiting Low 018 Medications PARoxetine (PAXIL) 30 mg tablet TAKE 1 TABLET BY MOUTH NIGHTLY 30 tablet 11 0 Active ARIPiprazole (ABILIFY) 10 mg tablet 1 Active gabapentin (NEURONTIN) 400 mg capsule 1 Active pseudoephedrine (SUDAFED) 30 mg tabletIndicatio ns:Nasal Congestion Take 2 tablets (60 mg total) by mouth every 6 (six) hours as needed for congestion 15 tablet 1 Active ketorolac (TORADOL) 10 mg tabletIndicatio ns:Severe Pain Take 1 tablet (10 mg total) by mouth every 6 (six) hours as needed for pain (sever headache) Take with food to avoid nausea 20 tablet 1 Active Active Problems Problem Noted Date Diagnosed Date Accidental drug overdose 07/31/2018 Assessment & Plan (07/31/2018 3:35 AM MARKET RISK SPECIALIST): Patient found unresponsive after took her boyfriend's methadone Responded immediately to Narcan. Currently hemodynamically stable. Denies any suicidal or homicidal ideations. Patient states that was not able to get into the clinic because does not have a car currently. Will get a social work consult to assess for barriers of care. Continue with telemetry monitoring Discussed and emphasized never to take anybody else medications., patient verbalized understanding Urine drug screen was negative for any illicit drugs Dental abscess 07/31/2018 Assessment & Plan (07/31/2018 3:39 AM MARKET RISK SPECIALIST): Multiple carietic teeth present with gingival tenderness and swelling Will start on cephazolin. Trend CBC Tylenol as needed for pain Multiple open wounds of lower extremity, right, sequela 07/31/2018 Assessment & Plan (07/31/2018 3:42 AM MARKET RISK SPECIALIST): Poorly healing right lower extremity surgical wounds status post screw removal. Moderate purulent discharge is present in the lower ankle area wound. Will obtain wound cultures, continue with cefazolin. Wound care consult. Depression 02/03/2014 Overview (12/25/2016): DEPRESSIVE DISORDER NEC Assessment & Plan (07/31/2018 3:37 AM MARKET RISK SPECIALIST): History of depression currently on Celexa. 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/03/2014 Overview (12/25/2016): High risk HPV infection Bipolar I disorder 01/23/2013 Overview (12/25/2016): Bipolar 1 disorder Rhinosinusitis Immunizations Immunization Administration Dates Next Due DTP 05/08/1994, 1,05/20/1989,03/22,01/18/1989 Hib (HbOC) 06/28/1991 Influenza, Quadrivalent, Spl it, Preservative Free, Intramuscular 07/09/2016 MMR 05/08/1994,06/28/1991 OPV 05/08/1994, 1,05/20/1989,03/22,01/18/1989 Tdap 01/09/2009, 4,06/28/1991,05/20,03/22/1989,01/18/1989 Surgical History Surgery Date Site/Laterality Comments OTHER SURGICAL HISTORY 09/20/1997 - 09/19/1998 Severe head trauma: surgery OTHER SURGICAL HISTORY 09/20/2007 - 09/19/2008 : 17 hr labor OTHER SURGICAL HISTORY 09/20/2011 - 09/19/2012 -full term: OTHER SURGICAL HISTORY 09/20/2014 - 09/19/2015 Chronic pelvic pain, endometriosis: L/S fulguration of endo. 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 Family History Medical History Relation Name Comments Other Neg Hx No history of M yocardial infarction; Relation Name Status Comments Brother Alive Father Alive Mother Alive Sister Alive Social History Tobacco Use Types Packs/Day Years Used Date Smoking Tobacco: Heavy Smoker Cigarettes 0.5 5 Smokeless Tobacco: Never Tobacco Cessation:Ready to Q uit: No; Counseling Given: No Comments:5 cigs per day Alcohol Use Standard Drinks/Week Comments Yes 0 (1 standard drink = 0.6 oz pur e alcohol) rarely PHQ-2 Answer Date Recorded PHQ-2 Total Score (If total score is 3 or more points, staff should administer the PHQ-9) 1 02/14/2020 Comments No Sex and Gender Information Value Date Recorded Sex Assigned at Not on file Legal Sex Female 3:58 PM MARKET RISK SPECIALIST Gender Identity Not on file Sexual Orientation Not on file Obstetrics History Para Term AB IAB SAB Ectopic Multiple Livin g Live Births 2 2 2 0 0 0 0 0 0 2 2 Date Outcome GA Total Labor Labor/2nd/3rd Weight Sex Type Anes PTL Francesca A1 A5 Name Clin Term Term Last Filed Vital Signs Vital Sign Reading Time Taken Comments Blood Pressure 142/77 02/22/2022 4:01 PM CDT Pulse 86 02/22/2022 4:01 PM CDT Temperature 36.5 C (97.7 F) 02/22/2022 4:01 PM CDT Respiratory Rate 18 02/22/2022 4:01 PM CDT Oxygen Saturation 100% 02/22/2022 4:01 PM CDT Inhaled Oxygen Concentration - - Weight 68 kg (150 lb) 02/22/2022 4:01 PM CDT Height 172.7 cm (5' 7.99) 08/27/2021 2:54 PM CS T Body Mass Index 22.81 08/27/2021 2:54 PM MARKET RISK SPECIALIST Plan of Treatment Not on file Insurance [facility] IDPA Advance Directives For more information, please contact: [phone] * Full Code (Latest Code Status on File) Date Activated Date Inactivated Comments 07/30/2018 10:41 PM 08/01/2018 2:25 PM * Full Code Date Activated Date Inactivated Comments 07/30/2018 9:59 AM 07/30/2018 10:41 PM Care Teams Manager Of Regulatory Affairs Relationship Specialty Start Date End Date No, Physician PCP - General 08/27/21
--- OUTSIDE RECORDS SUMMARY | 2025-07-17 17:47 | XMS_ITS | Patient Health Record ---
Author Organization [facility] Address [address] [place] [address] Care Team Providers Care Trainman Name Role Phone Jc Greer Primary Care Provider Reason For Referral No Information Social History Sex Assigned At : Social History Observation Description Sex Assigned At Female Plan Of Treatment No Information Insurance Providers Payer Name Payer Address Payer Phone Subscriber Number Group Number Insured Name Patient Relationship to Insured Coverage Start Date Coverage End Date [facility] Attn Claims Department [address] [place] [id number] Shaggy Anamika Self - patient is the insured 0 [facility] Attn Claims Department [address] [place] [address] [id number] Shaggy Anamika Self - patient is the insured 0
--- OUTSIDE RECORDS SUMMARY | 2025-07-17 17:47 | XMS_ITS | Clinical Summary ---
Author Organization [facility] Address [address] [place] [address] Phone Care Team Providers Care Bus Washer Name Role Phone Pamela Copeland MD Primary Care Provider Allergies Active Allergy Reactions Criticality Noted Date Comments Naproxen Vomiting 03/09/2018 Ketorolac Tromethamine Hives 03/17/2018 Medications albuterol (PROVENTIL HFA, VENTOLIN HFA) 108 (90 BASE) MCG/ACT Aerosol Solution take 2 Puffs by inhalation every 6 hours as needed for Wheezing. 1 Inhaler 0 6 Active Additional Information Patient not taking.Reported on 03/08/2019 gabapentin (NEURONTIN) 300 MG Capsule Take by mouth. 7 Active citalopram (CELEXA) 20 MG Tablet Take 20 mg by mouth daily. Active topiramate (TOPAMAX) 25 MG Tablet Take 1 Tab by mouth 2 times daily. 60 Tab 3 9 Active SUMAtriptan (IMITREX) 25 MG Tablet Take 1 Tab by mouth once as needed for Migraine for up to 1 dose. Use as directed. May repeat dose in 2 hours if headache recurs. 9 Tab 3 9 Active dicyclomine (BENTYL) 20 MG Tablet Take 1 Tab by mouth every 6 hours as needed (BOWEL SPASMS). 15 Tab 9 Active PARoxetine HCl (PAXIL PO) Take by mouth. Acti ve HYDROcodone-erik taminophen (NORCO) 5-325 MG Tablet Take 1-2 Tabs by mouth every 6 hours as needed for Moderate or more severe pain. 10 Tab 0 Active traMADol (ULTRAM) 50 MG Tablet Take 1-2 Tabs by mouth every 6 hours as needed for Moderate or more severe pain. 20 Tab 0 Active Active Problems Problem Noted Date Diagnosed Date Migraine with aura and witho ut status migrainosus, not intractable 03/08/2019 Fatigue 03/08/2019 Restless leg 03/08/2019 Family History Medical History Relation Name Comments Thyroid Disease Maternal Aunt Migraines Mother Relation Name Status Comments Maternal Aunt Mother Social History Tobacco Use Types Packs/Day Years Used Date Smoking Tobacco: Some Days Cigarettes 0.5 10 Smokeless Tobacco: Never Tobacco Cessation:Ready to Q uit: Yes Alcohol Use Standard Drinks/Week Comments No 0 (1 standard drink = 0.6 oz pur e alcohol) Comments No Sex and Gender Information Value Date Recorded Sex Assigned at Not on file Legal Sex Female 11:53 PM CDT Gender Identity Not on file Sexual Orientation Not on file Last Filed Vital Signs Vital Sign Reading Time Taken Comments Blood Pressure 117/102 02/23/2020 6:28 PM CDT Pulse 92 02/23/2020 6:28 PM CDT Temperature 37.5 C (99.5 F) 02/23/2020 6:28 PM CDT Respiratory Rate 18 02/23/2020 6:28 PM CDT Oxygen Saturation 98% 02/23/2020 6:28 PM CDT Inhaled Oxygen Concentration - - Weight 67.6 kg (149 lb) 02/23/2020 6:28 PM CDT Height 172.7 cm (5' 8) 02/23/2020 6:28 PM CDT Body Mass Index 22.66 02/23/2020 6:28 PM CDT Plan of Treatment Health Maintenance Due Date Last Done Comments Hepatitis C Virus (HCV) Screening 1988 Human Papillomavirus (HPV) Immunization (1 - 3-dose SCDM series) 2015 Influenza Immunization (#1) 2025 1009/2018, 08/09/2018, 05/17/2017, Additional history exists SARS-COV-2 Immunization ( season) 2025 Respiratory Syncytial Virus (RSV) Immunization (Adult) (1 - 1-dose 75+ series) 2063 DTaP/Tdap/Td Immunization Discontinued 2016, 01/09/2009, 05/08/1994, Additional history exists TdaP Immunization Completed 04/06/2017, , 05/08/1994, Additional history exists Hepatitis B Immunization Completed 018, 05/17/2017, 06/11/2015, Additional history exists Meningococcal Immunization (ACWY) Aged Out No longer eligible based on patient's age to complete this topic Pneumococcal Immunization Combined Aged Out No longer eligible based on patient's age to complete this topic Rotavirus Immunization Aged Out No lo nger eligible based on patient's age to complete this topic Insurance MEDICAID [employer] Care Teams Bus Washer Relationship Specialty Start Date End Date Deshaung Pamela Romero MD [address] [place] [address] [address] [place] [address] PCP - General Family Medicine 12/09/18
--- OUTSIDE RECORDS SUMMARY | 2025-07-17 17:47 | XMS_ITS | Clinical Summary ---
Author Organization [facility] Address [address] [place] [address] Care Team Providers Care Acupressurist Name Role Phone Varun Sharma MD Primary Care Provider [phone] Al Lr DO Unavailable Source Comments [facility],non-owned Affiliates and Associated Physician Practices is amultiple site organization consisting of ambulatory clinics and hospital sitesin [place], [place] and [place]. This disclosure is being madepursuant to the Care Everywhere program and may not contain all information available regarding this patient. Last updated 18.[facility] [employer] Allergies Active Allergy Reactions Criticality Noted Date Comments Naproxen Nausea and/or Vomiting 07/04/2018 Ketorolac Dizziness 07/04/2018 Medications * Be aware that medications may not be up to date on this document. Alwaysverify current medications with the patient. acetaminophen (TYLENOL) 500 MG tablet Take 2 tablets by mouth every 6 hours as needed for Fever or Pain Maximum allowable Acetaminophen amount = 4 Grams (4000 mg) / 24 hours. 03/26/20 20 Active senna (SENOKOT) 8.6 MG tablet Take 1 tablet by mouth once daily 30 tablet 3 04/09/20 20 Active pantoprazole EC (PROTONIX) 40 MG tablet Take 1 tablet by mouth once daily 30 tablet 04/09/20 20 Active lidocaine (LMX 4) 4 % cream APPLY TO SKIN UP TO FOUR TIMES DAILY NEEDED TO REDUCE PAIN 15 g 07/23/20 20 Active meloxicam (MOBIC) 15 MG tabletIndications: Finger infection,Osteoart hritis of hand, unspecified laterality, unspecified osteoarthritis type TAKE 1 TABLET BY MOUTH EVERY DAY 30 tablet 2 08/22/20 20 Active PARoxetine (PAXIL) 40 MG tablet Take 1 (one) tablet by mouth at bedtime 30 tablet 2 05/20/20 21 Active ARIPiprazole (ABILIFY) 10 MG tablet Take 1 (one) tablet by mouth at bedtime 30 tablet 05/20/20 21 Active gabapentin (NEURONTIN) 400 MG capsule Take 1 (one) capsule by mouth 3 times daily 120 capsule 3 05/21/20 21 Active Active Problems Problem Noted Date Diagnosed Date Arthralgia 03/15/2020 Finger infection 03/02/2020 Tobacco use 05/06/2017 Vitamin D deficiency 05/06/2017 Closed fracture of shaft of right tibia 05/05/20 17 Closed fracture of shaft of right fibula 017 Other acute postprocedural pain 05/04/2017 Pain of right leg 05/04/2017 Closed fracture of shaft of tibia 05/03/2017 Closed fracture of shaft of fibula 05/03/2017 Pain from implanted hardware Abscess Pyogenic inflammation of bone Resolved Problems Problem Noted Date Diagnosed Date Resolved Date Osteomyelitis of finger 02/19/2020 110 12/2019 Immunizations Immunization Administration Dates Next Due DTP 05/08/1994, 1,05/20/1989,1988,01/18/1989 HIB-HAEMOPHILUS INFLUENZAE B CONJUGATE VACCINE 06/28/1991 INFLUENZA VACCINE, QUADR. (F LUZONE; FLULAVAL; FLUARIX; AFLURIA QUADRIVALENT; 6MO+), 0.5 ML (IIV4) 07/09/2016 MMR 05/08/1994,06/28/1991 POLIO OPV 05/08/1994, 1,05/20/1989,1988,01/18/1989 TDAP (7yrs+) 06/30/2016, 9,05/08/1994,1990,05/20/1989,03/22/1989,01/18/1989 iNFLUENZA VACCINE, RECOM-ANDREWS, QUADR. (FLUBLOCK QUADRIVALENT; 18Y+) (RIV4) 07/23/2020 Family History Medical History Relation Name Comments Asthma Mother Relation Name Status Comments Mother Social History Tobacco Use Types Packs/Day Years Used Date Smoking Tobacco: Every Day Cigarettes Smokeless Tobacco: Never Tobacco Cessation:Ready to Q uit: Yes; Counseling Given: Yes Alcohol Use Standard Drinks/Week Comments No 0 (1 standard drink = 0.6 oz pur e alcohol) Comments No Sex and Gender Information Value Date Recorded Sex Assigned at Not on file Legal Sex Female 5:20 PM MANAGEMENT PLANNER Gender Identity Not on file Sexual Orientation Not on file Last Filed Vital Signs Vital Sign Reading Time Taken Comments Blood Pressure 120/84 07/23/2020 3:03 PM MANAGEMENT PLANNER Pulse 118 07/23/2020 3:03 PM MANAGEMENT PLANNER Temperature 36.6 C (97.8 F) 07/23/2020 3:03 PM MANAGEMENT PLANNER Respiratory Rate 20 04/23/2020 11:29 AM CDT Oxygen Saturation 97% 07/23/2020 3:03 PM MANAGEMENT PLANNER Inhaled Oxygen Concentration - - Weight 66.2 kg (146 lb) 07/23/2020 3:03 PM MANAGEMENT PLANNER Height 172.7 cm (5' 8) 04/09/2020 2:21 PM CDT Body Mass Index 22.2 04/09/2020 2:21 PM CDT Plan of Treatment Health Maintenance Due Date Last Done Comments HEPATITIS B VACCINE (1 of 3 - 19+ 3-dose series) 2007 PNEUMOCOCCAL VACCINE (1 of 2 - PCV) 2007 HPV VACCINE (1 - 3-dose SCDM series) 2015 DEPRESSION SCREENING 09/20/2024 COVID-19 VACCINE ( - season) 2025 INFLUENZA VACCINE (#1) 2025 07/23/2020, 2015 DTAP/TDAP/TD VACCINES (8 - Td or Tdap) 06/30/2026 06/30/2016, 01/09/2009, 05/08/1994, Additional history exists ZOSTER VACCINE (1 of 2) 2038 HIB VACCINE Completed 06/28/1991 HEPATITIS C SCREENING Completed 03/19/2020 HIV SCREENING Completed 03/19/2020 MENINGOCOCCAL (Group B) VACCINE SHARED DECISION-MAKING Aged Out No longer eligible based on patient's age to complete this topic MENINGOCOCCAL GROUPS A/C/Y/W VACCINE Aged Out No longer eligible based on patient's age to complete this topic Goals Goal Patient Goal Type Associated Problems Recent Progress Patient-Stated? Author Mobility General No Ira Gillette RN Note: Expected end date: 06/19/2020 The goal is to maintain or improve your mobility at the optimum level for you. Interventions: Medical Devices Explanted Type Area Immersion Metal Cleaner Device Identifier Shelf Expiration Date Model / Serial / Lot 4.5 Screw Explanted:Qty: 2 on 07/04/2018 at [facility] [employer] / / Procedures Procedure Name Priority Date/Time Associated Diagnosis Comments HEPATITIS C ANTIBODY REFLX QUANT & GENOTYPE AM Draw 03/19/2020 5:31 AM CDT HIV-1 HIV-2 ANTIGEN/ANTIBODY AM Draw 03/19/2020 5:31 AM CDT from Last 3 Months or Most Recently Relevant to Health Maintenance Results * HEPATITIS C ANTIBODY REFLX QUANT & GENOTYPE (03/19/2020 5:31 AM CDT) Hepatitis C Antibody Non-react zeina Non-reac tive 03/19/2020 6:21 AM CDT [facility] Comment:Hepatitis C Antibody screen indicates no serologic evidence of past or current infection with Hepatitis C Virus. Patients with unexplained liver disease who are immunocompromised or suspected of having acute Hepatitis C infection may benefit from Nucleic Acid Test (ONELIA) for Hepatitis C Viral RNA to confirm Hepatitis C status. Blood BLOOD SPECIMEN / Unknown Lab Venipuncture / Unknown 03/19/2020 5:31 AM CDT 03/19/2020 5:39 AM CDT us Keith Mccarty MD LAB - CHEMISTRY ORDERABLES Final Result [facility] [address] [place] [id number], [facility] [phone] * HIV-1 HIV-2 ANTIGEN/ANTIBODY (03/19/2020 5:31 AM CDT) HIV Antigen/Antibod y 1 & 2 Non-reacti ve Non-react zeina 03/19/2020 6:17 AM CDT [facility] Comment:Neither HIV-1 p24 An tigen nor HIV-1/HIV-2 Antibodies are detected. Blood BLOOD SPECIMEN / Unknown Lab Venipuncture / Unknown 03/19/2020 5:31 AM CDT 03/19/2020 5:39 AM CDT us Keith Mccarty MD LAB - HEMATOLOGY ORDERABLES Eva mak Result [facility] [address] [id number], [facility] [phone] from Last 3 Months or Most Recently Relevant to Health Maintenance Insurance [facility] Advance Directives * Full Code (Latest Code Status on File) Date Activated Date Inactivated Comments 03/15/2020 11:26 PM 03/26/2020 12:57 PM * Full Code Date Activated Date Inactivated Comments 03/02/2020 2:46 PM 03/03/2020 4:09 PM * Full Code Date Activated Date Inactivated Comments 07/03/2018 8:03 PM 07/04/2018 2:28 PM Care Teams Acupressurist Relationship Specialty Start Date End Date Varun Sharma MD [address] [facility] [place] [address] PCP - General Internal Medicine 08/02/20 Al Lr DO [address] [facility] [place], [place] Resident - PCP Internal Medicine 05/20/21
== END 2025-07-17 16:56 | disposition home or self-care (01) ==
DX: J32.9 Chronic sinusitis, unspecified (principal); Z20.822 Contact with and (suspected) exposure to COVID-19; F17.210 Nicotine dependence, cigarettes, uncomplicated; G25.81 Restless legs syndrome; Z86.16 Personal history of COVID-19
CPT/HCPCS: 87426; 87804; 99213; G0463